=== PATIENT | female | born 1955 | race Asian ===

== ENCOUNTER 2021-11-13 14:59 | Outpatient (CLI) | payer OTHER | END 2021-11-13 19:00 | disposition home or self-care (01) | LOC: MAMMO 14:59 | PROVIDERS: ATTEND Nurse Practitioner Family | DX: Z12.31 Encounter for screening mammogram for malignant neoplasm of breast (principal) ==

== ENCOUNTER 2021-12-30 18:43 | Emergency (ER) | payer OTHER ==
[~2021-12-30] VITALS: Ht 157.5 cm; Wt 72.6 kg
[2021-12-30 19:51] LABS: PLATELET COUNT 230 K/uL (152-353)
[2021-12-30 20:18] LABS: POTASSIUM 4.1 mmol/L (3.6-5.2)
[2021-12-30 21:55] VITALS: BP 170/81; TEMP 99
== END 2021-12-30 21:55 | disposition home or self-care (01) ==
LOC: ED 18:43
PROVIDERS: Emergency Medicine
DX: R51.9 Headache, unspecified (principal); I10 Essential (primary) hypertension; F17.210 Nicotine dependence, cigarettes, uncomplicated
CPT/HCPCS: 36415; 80048; 84484; 85027; 93005; 96374; 96375; 99284; J0360; J3490

== ENCOUNTER 2022-11-16 12:35 | Outpatient (CLI) | payer OTHER | END 2022-11-16 19:25 | disposition home or self-care (01) | LOC: MAMMO 12:35 | PROVIDERS: ATTEND Nurse Practitioner Family | DX: Z12.31 Encounter for screening mammogram for malignant neoplasm of breast (principal) ==